=== PATIENT | male | born 1935 | race Two or more races ===

== ENCOUNTER 2017-02-27 18:08 | Emergency (ER) | payer MEDICARE ==
[~2017-02-27] VITALS: Ht 160 cm; Wt 65.8 kg
[2017-02-27] MEDS ORDERED: cloNIDine HCL 0.1 MG TAB ONE (18:14)
[2017-02-27] MEDS ORDERED: cloNIDine HCL 0.1 MG TAB PO ONE (18:30)
[2017-02-28 00:11] VITALS: BP 141/75
[2017-02-28 01:53] LABS: Urine RBC None Seen /hpf (0 - 3)
[2017-02-28 02:05] LABS: Urine Bilirubin Negative (Negative); Urine Blood Negative /uL (Negative); Urine Color Yellow (Yellow); Urine Glucose Normal (Normal); Urine Ketone Negative (Negative); Urine Mucus FEW (None Seen); Urine Nitrite Negative (Negative); Urine Urobilinogen Normal (Negative); Urine pH 6.5 (5.0-8.0)
== END 2017-02-28 02:11 | disposition home or self-care (01) ==
LOC: ER 18:08
DX: K40.90 Unilateral inguinal hernia, without obstruction or gangrene, not specified as recurrent (principal); I10 Essential (primary) hypertension
CPT/HCPCS: 76870; 81001; 93005; 94761

== ENCOUNTER 2023-06-13 08:11 | Emergency (ER) | payer MEDICARE, OTHER ==
[2023-06-13] MEDS ORDERED: LIDOCAINE 2% JELLY 11ml (GLYDO) UR ONE (08:45)
[2023-06-13 09:11] LABS: Urine Bacteria NONE SEEN /hpf (None Seen); Urine Blood Negative /uL (Negative); Urine Specific Gravity 1.008 (1.001-1.035); Urine WBC <1 /hpf (0 - 3)
[2023-06-13 09:25] VITALS: PULSE 118; RESP 10; O2SAT 98
[2023-06-13 11:00] VITALS: BP 125/64; PULSE 70; RESP 16; TEMP 98.4; O2SAT 97
== END 2023-06-13 11:18 | disposition home or self-care (01) ==
LOC: EDBD 08:11 → EDUNIT# 08:11 → ER 08:11
DX: R33.9 Retention of urine, unspecified (principal); I10 Essential (primary) hypertension
CPT/HCPCS: 51702; 81001

== ENCOUNTER 2023-06-18 08:24 | Emergency (ER) | payer OTHER ==
[~2023-06-18] VITALS: Ht 162.6 cm; Wt 56.7 kg
[2023-06-18 08:34] VITALS: BP 151/73; PULSE 82; RESP 16; TEMP 97.7; O2SAT 98
[2023-06-18] MEDS ORDERED: FUROSEMIDE 40 MG/4 ML VIAL IV ONE ×2 (11:45→15:15)
[2023-06-18 13:21] LABS: Urine Bacteria NONE SEEN /hpf (None Seen); Urine Blood 3+ /uL (Negative); Urine Clarity Clear (Clear); Urine Protein, UAD TRACE (Negative); Urine Specific Gravity 1.006 (1.001-1.035); Urine Urobilinogen Normal (Negative); Urine WBC 5 /hpf (0 - 3); Urine pH 6.5 (5.0-8.0)
[2023-06-18 13:32] LABS: Urine Color Straw (Yellow)
[2023-06-18] MEDS ORDERED: CEFP100T6 PO (15:09)
[2023-06-18] MEDS ORDERED: POTASSIUM CHL 10 Meq TABLET PO ONE (15:15)
== END 2023-06-18 18:37 | disposition home or self-care (01) ==
LOC: ER 08:24
DX: T83.038A Leakage of other urinary catheter, initial encounter (principal); N39.0 Urinary tract infection, site not specified; M79.89 Other specified soft tissue disorders; I10 Essential (primary) hypertension; Z85.9 Personal history of malignant neoplasm, unspecified; Z98.890 Other specified postprocedural states; Z79.899 Other long term (current) drug therapy
CPT/HCPCS: 51702; 76856; 81001; 96374; 96376; 99285; J1940